=== PATIENT | male | born 1995 | race Caucasian/White ===

== ENCOUNTER 2019-05-02 03:34 | Emergency (ER) | payer MEDICAID ==
[2019-05-02] MEDS ORDERED: GI Cocktail Oral Solution 30 ML PO ONE (03:46)
[2019-05-02] MEDS ORDERED: Sodium Chloride 0.9% 10 ML Syringe FLUSH PRN (03:52)
--- NOTE | 2019-05-02 03:52 | EDM.PDOC ---
ED HPI GENERAL MEDICAL PROBLEM - General Chief Complaint: Chest Pain Stated Complaint: chest pain Time Seen by Provider: 05/02/19 03:45 Source of Information: Reports: Patient History Limitations: Reports: No Limitations - History of Present Illness INITIAL COMMENTS - FREE TEXT/NARRATIVE: Patient reports nausea and sweating earlier while at work. He does work outside. Dinner consisted of a cheeseburger and cheese curds. Reported chest pain at 11 pm. States this is burning in nature with radiation to his back. He is not short of breath. He denies headache. He is still nauseated. Onset: Today Duration: Intermittent Location: Reports: Chest, Abdomen, Back Quality: Reports: Burning Severity: Moderate Epigastric Pain Score (Numeric/FACES): 10 - Related Data Allergies Allergy/AdvReac Type Severity Reaction Status Date / Time No Known Allergies Allergy Verified 05/02/19 03:35 Home Meds: Home Meds Sertraline [Zoloft] 50 mg PO DAILY 05/02/19 [History] ED ROS GENERAL - Review of Systems Review Of Systems: See Below Constitutional: Reports: Diaphoresis HEENT: Reports: No Symptoms Respiratory: Reports: No Symptoms Cardiovascular: Reports: Chest Pain GI/Abdominal: Reports: Abdominal Pain, Nausea, Vomiting : Reports: No Symptoms Musculoskeletal: Reports: No Symptoms Skin: Reports: No Symptoms Neurological: Reports: No Symptoms Psychiatric: Reports: No Symptoms Hematologic/Lymphatic: Reports: No Symptoms Immunologic: Reports: No Symptoms ED EXAM, GENERAL - Physical Exam Exam: See Below Exam Limited By: No Limitations General Appearance: Alert, WD/WN, Mild Distress Eye Exam: Bilateral Eye: EOMI, Normal Inspection Nose: Normal Inspection, Normal Mucosa, No Blood Throat/Mouth: Normal Inspection, Normal Lips, Normal Teeth, Normal Gums, Normal Oropharynx, Normal Voice, No Airway Compromise Head: Atraumatic, Normocephalic Neck: Normal Inspection, Supple, Non-Tender, Full Range of Motion Respiratory/Chest: No Respiratory Distress, Lungs Clear, Normal Breath Sounds, No Accessory Muscle Use, Chest Non-Tender Cardiovascular: Normal Peripheral Pulses, Regular Rate, Rhythm, No Edema, No Gallop, No JVD, No Murmur, No Rub GI/Abdominal: Normal Bowel Sounds, Soft, Non-Tender, No Organomegaly, No Distention, No Abnormal Bruit, No Mass Back Exam: Normal Inspection, Full Range of Motion, NT Extremities: Normal Inspection, Normal Range of Motion, Non-Tender, Normal Capillary Refill, No Pedal Edema Neurological: Alert, Oriented, CN II-XII Intact, Normal Cognition, Normal Gait, Normal Reflexes, No Motor/Sensory Deficits Psychiatric: Normal Affect, Anxious Skin Exam: Warm, Dry, Intact, Normal Color, No Rash Lymphatic: No Adenopathy Course - Vital Signs Last Recorded V/S: Last Vital Signs Temp 35.4 C 05/02/19 03:36 Pulse 68 05/02/19 03:36 Resp 20 05/02/19 03:36 BP 157/94 H 05/02/19 03:36 Pulse Ox 97 05/02/19 03:36 - Orders/Labs/Meds Orders: Active Orders 24 hr Category Date Time Status EKG Documentation Completion [RC] STAT Care 05/02/19 03:46 Ordered DRUG SCREEN, URINE [URCHEM] Stat Lab 05/02/19 03:57 Ordered Sodium Chloride 0.9% [Normal Saline] 1,000 ml Med 05/02/19 04:00 Ordered IV ASDIRECTED Sodium Chloride 0.9% [Saline Flush] Med 05/02/19 03:52 Ordered 10 ml FLUSH ASDIRECTED PRN Saline Lock Insert [OM.PC] Routine Oth 05/02/19 03:52 Ordered Medication Orders Sodium Chloride (Normal Saline) 1,000 mls @ 999 mls/hr IV ASDIRECTED JEMMA Last Admin: 05/02/19 04:10 Dose: 999 mls/hr Sodium Chloride (Saline Flush) 10 ml FLUSH ASDIRECTED PRN PRN Reason: Keep Vein Open Labs: Laboratory Tests 05/02/19 05/02/19 05/02/19 Range/Units 04:06 04:06 04:12 WBC 10.0 (4.0-10.0) x10^3/uL RBC 5.88 (4.5-6.0) x10^6/uL Hgb 16.9 (14.0-18.0) g/dL Hct 48.9 (40.0-52.0) % MCV 83.2 (78.0-93.0) fL MCH 28.7 (26.0-32.0) pg MCHC 34.6 (32.0-36.0) g/dL RDW Coeff of Paula 13.9 (10.0-15.0) % Plt Count 329 (130-400) x10^3/uL Neut % (Auto) 78.5 (50.0-80.0) % Lymph % (Auto) 15.1 L (25.0-50.0) % Sterling % (Auto) 5.3 (2.0-11.0) % Eos % (Auto) 0.8 (0.0-4.0) % Baso % (Auto) 0.3 (0.2-1.2) % Sodium 143 (136-145) mmol/L Potassium 3.6 (3.5-5.1) mmol/L Chloride 103 (98-107) mmol/L Carbon Dioxide 26 (21-32) mmol/L Anion Gap 17.6 (10-20) mmol/L BUN 19 H (7-18) mg/dL Creatinine 1.1 (0.70-1.30) mg/dL Est Cr Clr Drug Dosing TNP Estimated GFR (MDRD) > 60 Glucose 125 H (74-106) mg/dL Calcium 9.5 (8.5-10.1) mg/dL Corrected Calcium 9.02 (8.5-10.1) mg/dL Total Bilirubin 0.6 (0.2-1.0) mg/dL AST 16 (15-37) U/L ALT 34 (16-63) U/L Alkaline Phosphatase 89 (46-116) U/L POC Troponin I 0.01 (0.00-0.08) ng/mL Total Protein 8.7 H (6.4-8.2) g/dL Albumin 4.6 (3.4-5.0) g/dL Globulin 4.1 Albumin/Globulin Ratio 1.12 Amylase 40 (25-115) U/L Meds: Medications Generic Name Dose Route Start Last Admin Trade Name Freq PRN Reason Stop Dose Admin Sodium Chloride 1,000 mls @ 999 mls/hr 05/02/19 04:00 05/02/19 04:10 Normal Saline IV 999 mls/hr ASDIRECTED JEMMA Administration Sodium Chloride 10 ml 05/02/19 03:52 Saline Flush FLUSH ASDIRECTED PRN Keep Vein Open Discontinued Medications Generic Name Dose Route Start Last Admin Trade Name Freq PRN Reason Stop Dose Admin Al Hydroxide/Mg Hydroxide 30 ml 05/02/19 03:46 05/02/19 03:53 Gi Cocktail PO 05/02/19 03:47 30 ml ONETIME ONE Administration Ondansetron HCl 4 mg 05/02/19 03:55 05/02/19 04:13 Zofran IVPUSH 05/02/19 03:56 4 mg ONETIME ONE Administration Pantoprazole Sodium 40 mg 05/02/19 03:54 05/02/19 04:10 Protonix Iv IVPUSH 05/02/19 03:55 40 mg ONETIME ONE Administration Departure - Departure Time of Disposition: 05:14 Disposition: Home, Self-Care 01 Condition: Fair Clinical Impression: Nonspecific chest pain Instructions: Nonspecific Chest Pain, [id number] Forms: ED Department Discharge Additional Instructions: Plan 1. Follow up as needed with your primary doctor 2. Your labs and EKG today were negative for any acute cause of your pain. Take ibuprofen and tylenol for pain control 3. Take prilosec OTC daily for the next 3 weeks then stop. 4. If you develop blood in your urine, stool, or have blood while vomiting, come to the emergency department 6. Labs today do not indicate this is your heart, gall bladder. It could still be ulcers or reflux disease which we are unable to test for here. 7. Please call us if you have any questions or concerns - Problem List & Annotations (1) Nonspecific chest pain SNOMED Code(s): 97927886 Code(s): R07.9 - CHEST PAIN, UNSPECIFIED Status: Acute Priority: Low Current Visit: Yes - Problem List Review Problem List Initiated/Reviewed/Updated: Yes - My Orders Last 24 Hours: My Active Orders 05/02/19 03:46 EKG Documentation Completion [RC] STAT 05/02/19 03:52 Sodium Chloride 0.9% [Saline Flush] 10 ml FLUSH ASDIRECTED PRN Saline Lock Insert [OM.PC] Routine 05/02/19 03:57 DRUG SCREEN, URINE [URCHEM] Stat 05/02/19 04:00 Sodium Chloride 0.9% [Normal Saline] 1,000 ml IV ASDIRECTED - Assessment/Plan Last 24 Hours: My Active Orders 05/02/19 03:46 EKG Documentation Completion [RC] STAT 05/02/19 03:52 Sodium Chloride 0.9% [Saline Flush] 10 ml FLUSH ASDIRECTED PRN Saline Lock Insert [OM.PC] Routine 05/02/19 03:57 DRUG SCREEN, URINE [URCHEM] Stat 05/02/19 04:00 Sodium Chloride 0.9% [Normal Saline] 1,000 ml IV ASDIRECTED Assessment:: chest pain, non specific Plan: Plan 1. Follow up as needed with your primary doctor 2. Your labs and EKG today were negative for any acute cause of your pain. Take ibuprofen and tylenol for pain control 3. Take prilosec OTC daily for the next 3 weeks then stop. 4. If you develop blood in your urine, stool, or have blood while vomiting, come to the emergency department 6. Labs today do not indicate this is your heart, gall bladder. It could still be ulcers or reflux disease which we are unable to test for here. 7. Please call us if you have any questions or concerns
[2019-05-02] MEDS ORDERED: Pantoprazole 40 MG Vial IVPUSH ONE (03:54)
[2019-05-02] MEDS ORDERED: Ondansetron 4 MG/2 ML SDV IVPUSH ONE (03:55)
[2019-05-02] MEDS ORDERED: Sodium Chloride 0.9% 1,000 ML IV SCH (04:00)
[2019-05-02 04:41] LABS: ANION GAP 17.6 mmol/L (10-20); CHLORIDE,CL 103 mmol/L (98-107); SODIUM,NA 143 mmol/L (136-145)
[2019-05-02] MEDS ORDERED: methylPREDNISolone Sodium Succinate 40 MG/1 ML SDV IVPUSH ONE (05:02)
== END 2019-05-02 05:22 | disposition home or self-care (01) ==
LOC: VM.ED 03:34
DX: R07.9 Chest pain, unspecified (principal); Z79.899 Other long term (current) drug therapy
CPT/HCPCS: 80053; 82150; 84484; 85025; 93005; 96361; 96374; 96375; 99285; A9270; C9113; J2405; J2920; J7030; 36415

== ENCOUNTER 2024-12-20 19:58 | Emergency (ER) | payer SELFPAY ==
[2024-12-20] MEDS ORDERED: Amoxicillin 250 MG/5 ML Susp 150 ML Bottle PO ONE (20:06)
[2024-12-20] MEDS: Acetaminophen/HYDROcodone 325-10 MG Tab PO ONE (20:15)
[2024-12-20] MEDS: Amoxicillin 500 MG Cap PO ONE (20:15)
[2024-12-20] MEDS: cloNIDine 0.1 MG Tab PO ONE (20:15)
== END 2024-12-20 20:30 | disposition home or self-care (01) ==
LOC: MERGE 19:58 → VM.ED 19:58
DX: K04.7 Periapical abscess without sinus (principal); I10 Essential (primary) hypertension; Z79.899 Other long term (current) drug therapy
CPT/HCPCS: 41800; 99283; A9270